=== PATIENT | male | born 1970 | race Caucasian/White ===

== ENCOUNTER 2019-07-12 17:08 | Emergency (ER) | payer BC ==
[2019-07-12] MEDS ORDERED: Tetracaine HCl/PF 0.5% 4 ML Bottle EYELF ONE (17:52)
--- NOTE | 2019-07-12 18:07 | EDM.PDOC ---
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 he does not have foreign body sensation or did not yesterday however he feels that the 2 may be related he may have gotten something in his eye He is dry and itchy as well as he does have pain and pressure no fever nausea vomiting chills sweats no vision change light sensitivity blurred vision or double vision The left sclera is injected he was examined with Wood's lamp and fluorescein after tetracaine no foreign body is appreciated upper lid is retracted Right eye is within normal limits ] Review of systems: As per history of present illness and below otherwise all systems reviewed and negative. Past medical history: As per history of present illness and as reviewed below otherwise noncontributory. Surgical history: As per history of present illness and as reviewed below otherwise noncontributory. Social history: No reported history of drug or alcohol abuse. Family history: As per history of present illness and as reviewed below otherwise noncontributory. Physical exam: HEENT: Atraumatic, normocephalic, pupils reactive, negative for conjunctival pallor or scleral icterus, mucous membranes moist, throat clear, neck supple, nontender, trachea midline. Lungs: Clear to auscultation, breath sounds equal bilaterally, chest nontender. Heart: S1S2, regular, negative for clicks, rubs, or JVD. Abdomen: Soft, nondistended, nontender. Negative for masses or hepatosplenomegaly. Negative for costovertebral tenderness. Pelvis: Stable nontender. Genitourinary: Deferred. Rectal: Deferred. Extremities: Atraumatic, negative for cords or calf pain. Neurovascular unremarkable. Neuro: Awake, alert, oriented. Cranial nerves II through XII unremarkable. Cerebellum unremarkable. Motor and sensory unremarkable throughout. Exam nonfocal. Diagnostics: [Lamp fluorescein ] Therapeutics: [Tetracaine Gent ophthalmic Prednisone Levaquin ] Impression: [Situs Conjunctivitis ] Definitive disposition and diagnosis as appropriate pending reevaluation and review of above. L eye Pain Score (Numeric/FACES): 7 - Related Data Allergies Allergy/AdvReac Type Severity Reaction Status Date / Time Penicillins Allergy Rash Verified 07/12/19 17:42 Home Meds: Home Meds . [No Known Home Meds] 07/12/19 [History] Past Medical History - Past Health History Medical/Surgical History: Denies Medical/Surgical History - Infectious Disease History Infectious Disease History: Reports: Chicken Pox, Mumps Social & Family History - Family History Family Medical History: Noncontributory - Tobacco Use Smoking Status *Q: Current Every Day Smoker Years of Tobacco use: 35 Packs/Tins Daily: 1 - Caffeine Use Caffeine Use: Reports: None - Recreational Drug Use Recreational Drug Use: No ED ROS GENERAL - Review of Systems Review Of Systems: See Below ED EXAM GENERAL W FULL EYE - Physical Exam Exam: See Below Course - Vital Signs Last Recorded V/S: Last Vital Signs Temp 97.5 F 07/12/19 17:42 Pulse 76 07/12/19 17:42 Resp 16 07/12/19 17:42 BP 113/74 07/12/19 17:42 Pulse Ox 97 07/12/19 17:42 - Orders/Labs/Meds Meds: Medications Discontinued Medications Generic Name Dose Route Start Last Admin Trade Name Freq PRN Reason Stop Dose Admin Tetracaine HCl 1 ml 07/12/19 17:52 07/12/19 17:55 Tetracaine 0.5% Steri-Unit Shaina EYELF 07/12/19 17:53 1 ml ASDIRECTED ONE Administration Departure - Departure Time of Disposition: 18:06 Disposition: Home, Self-Care 01 Condition: Good Clinical Impression: Conjunctivitis, Sinusitis - Discharge Information Referrals: PCP,None [Primary Care Provider] - Additional Instructions: The following information is given to patients seen in the emergency department who are being discharged to home. This information is to outline your options for follow-up care. We provide all patients seen in our emergency department with a follow-up referral. The need for follow-up, as well as the timing and circumstances, are variable depending upon the specifics of your emergency department visit. If you don't have a primary care physician on staff, we will provide you with a referral. We always advise you to contact your personal physician following an emergency department visit to inform them of the circumstance of the visit and for follow-up with them and/or the need for any referrals to a consulting specialist. The emergency department will also refer you to a specialist when appropriate. This referral assures that you have the opportunity for follow-up care with a specialist. All of these measure are taken in an effort to provide you with optimal care, which includes your follow-up. Under all circumstances we always encourage you to contact your private physician who remains a resource for coordinating your care. When calling for follow-up care, please make the office aware that this follow-up is from your recent emergency room visit. If for any reason you are refused follow-up, please contact the [facility] emergency department at and asked to speak to the emergency department charge nurse. Sepsis Event Note - Evaluation Sepsis Screening Result: No Definite Risk - Focused Exam Vital Signs: Vital Signs Temp Pulse Resp BP Pulse Ox 07/12/19 17:42 97.5 F 76 16 113/74 97 Date Exam was Performed: 07/12/19 Time Exam was Performed: 18:03
== END 2019-07-12 18:20 | disposition home or self-care (01) ==
LOC: MW.ED 17:08
DX: H10.9 Unspecified conjunctivitis (principal); J32.9 Chronic sinusitis, unspecified; F17.210 Nicotine dependence, cigarettes, uncomplicated; Z88.0 Allergy status to penicillin
CPT/HCPCS: 99283

== ENCOUNTER 2021-10-20 20:02 | Emergency (ER) | payer BC ==
[2021-10-20] MEDS ORDERED: Sodium Chloride 0.9% 1,000 ML IV ONE (20:07)
[2021-10-20] MEDS ORDERED: Ondansetron 4 MG/2 ML SDV IVPUSH ONE (20:07)
[2021-10-20] MEDS ORDERED: Ketorolac 30 MG/ML SDV IVPUSH ONE (20:25)
[2021-10-20 20:54] LABS: BLOOD UREA NITROGEN,BUN 14 mg/dL (7.0-18.0); CHLORIDE,CL 95 mmol/L (98-107); GLUCOSE RANDOM 122 mg/dL (74-106); LIPASE 56 U/L (73-393); POTASSIUM,K 3.3 mmol/L (3.5-5.1); SODIUM,NA 132 mmol/L (136-148)
[2021-10-20 21:42] LABS: CORONAVIRUS COVID-19 NAA NEGATIVE (NEGATIVE); INFLUENZA A NAA NEGATIVE (NEGATIVE); INFLUENZA B NAA NEGATIVE (NEGATIVE)
[2021-10-20] MEDS ORDERED: Azithromycin 250 MG Tab PO STA (21:52)
== END 2021-10-20 22:10 | disposition home or self-care (01) ==
LOC: MW.ED 20:02
DX: J06.9 Acute upper respiratory infection, unspecified (principal); Z88.0 Allergy status to penicillin; Z79.899 Other long term (current) drug therapy; Z20.822 Contact with and (suspected) exposure to COVID-19
CPT/HCPCS: 0240U; 36415; 71045; 71045-26; 80053; 81001; 82375; 83690; 85025; 93005; 96361; 96374; 96375; 99284-25; A9270-GY; J1885; J2405; J7030